=== PATIENT | female | born 1960 ===

== ENCOUNTER 2021-09-26 21:21 | Observation (INO) | payer SELFPAY ==
[2021-09-26] MEDS ORDERED: MORPHINE 4 MG/ML SYR ONE (23:35)
[2021-09-26] MEDS ORDERED: ONDANSETRON 4 MG/2 ML VIAL ONE (23:36)
[2021-09-26 23:47] LABS: Absolute Lymphocytes (CBC) 0.7 K/uL (0.7-4.9); Basophils % 0.7 % (0-1.3); Hematocrit 38.1 % (36.0-45.0); Lymphocytes % 11.4 % (15.3-44.8); MPV 11.1 fL (7.6-11.3); RBC Red Blood Cell Count 4.09 M/uL (3.86-4.86)
[2021-09-26 23:51] LABS: Protime INR 1.3
[2021-09-27 00:02] LABS: ALT/SGPT 67 U/L (12-78); AST/SGOT 88 U/L (15-37); Albumin 2.1 g/dL (3.4-5.0); Alkaline Phosphatase 134 U/L (45-117); BUN Blood Urea Nitrogen 22 mg/dL (7-18); Bicarbonate 22 mmol/L (21-32); Bilirubin Direct 0.8 mg/dL (0-0.2); Bilirubin Total 1.4 mg/dL (0.2-1.0); Glucose Level 101 mg/dL (74-106); NT PRO-BNP 232 pg/mL (<125); Potassium 3.5 mmol/L (3.5-5.1); Protein, Total 8.7 g/dL (6.4-8.2); Sodium Level 138 mmol/L (136-145); Troponin (Emerg Dept Use Only) < 0.02 ng/mL (0.0-0.045)
[2021-09-27] MEDS ORDERED: FUROSEMIDE 40 MG/4 ML VIAL ONE (01:07)
--- NOTE | 2021-09-27 01:55 | P.HP ---
Certification for Inpatient Patient admitted to: Observation With expected LOS: <2 Midnights Patient will require the following post-hospital care: None Practitioner: I am a practitioner with admitting privileges, knowledge of patient current condition, hospital course, and medical plan of care. Services: Services provided to patient in accordance with Admission requirements found in Title 42 Section 412.3 of the Code of Federal Regulations Patient History Date of Service: 09/27/21 Primary Care Provider: [place] Reason for admission: Ascites History of Present Illness: 61-year-old female with history of hepatitis C, hypertension presents emergency department for abdominal swelling. Patient reports to diagnosed with hepatitis C approximately 2 years ago, has noticed increased welling to the abdomen over the course of last 6 months, daughter reports significant worsening over the course of last few days. Patient noted to have severe abdominal swelling, moderately tense ascites with some dyspnea related. Patient was evaluated in the emergency department labs were significant for chloride 108 GFR 60 9T bili 1.4D bili 0.8 AST 88 alk phos 134 BNP [address] abdomen pelvis demonstrated massive ascites patient to at least for underlying hepatic masses the largest of which inferiorly measures 4.3 cm, no biliary dilatation. ED provider wishes to admit for further evaluation and management/paracentesis. - Past Medical/Surgical History -: Hepatitis C -: Hypertension -: Cholecystectomy -: Psychosocial/ Personal History: Patient lives at home with her son - Family History Mother -: Heart disease - Social History Smoking Status: Never smoker Counseled patient to stop smoking for: less than 10 minutes Alcohol use: No CD- Drugs: No Caffeine use: Yes Place of Residence: Home Review of Systems Respiratory: Shortness of Breath Gastrointestinal: Abdominal Pain, Distention Physical Examination - Physical Exam General: Alert, In no apparent distress, Oriented x3 HEENT: Atraumatic Neck: Supple Respiratory: Clear to auscultation bilaterally Cardiovascular: No edema, Normal S1 S2 Capillary refill: <2 Seconds Gastrointestinal: Hypoactive, Distended, Ascites Musculoskeletal: No contractures, No erythema Integumentary: No significant lesion, No tenderness/swelling, No erythema Neurological: Normal speech, Normal strength at 5/5 x4 extr, Normal tone - Studies Laboratory Data (last 24 hrs) 09/26/21 23:26: PT 15.0 H, INR 1.30, APTT 30.0 09/26/21 23:26: WBC 6.20, Hgb 12.4, Hct 38.1, Plt Count 152 09/26/21 23:26: Sodium 138, Potassium 3.5, BUN 22 H, Creatinine 0.84, Glucose 101, Magnesium 2.0, Total Bilirubin 1.4 H, AST 88 H, ALT 67, Alkaline Phosphatase 134 H Assessment and Plan - Plan Assessment: Abdominal pain, significant abdominal ascites secondary to chronic hepatitis C Hypertension Plan: Abdominal pain, significant abdominal ascites secondary to chronic hepatitis C with newly found hepatic masses: Continue medications including prolactin, lactulose, furosemide. Will obtain ammonia level. Will attempt to arrange for ultrasound-guided abdominal paracentesis with fluid analysis including cell count, cytology, culture and sensitivity, LDH, glucose, triglycerides, Gram stain. We will also administer albumin 25% 10 g/L removed. MRI also ordered to further evaluate hepatic masses. Patient counseled on need for follow-up with GI/hepatology on outpatient basis for further care. Hypertension: Obtain and continue home medications. DVT PPX: SCDs Code status: Full code Discharge Plan: Home Plan to discharge in: 24 Hours - Advance Directives Does patient have a Living Will: No Does patient have a Durable POA for Healthcare: No - Code Status/Comfort Care Code Status Assessed: Yes (Full code ) Critical Care: No Time Spent Managing Pts Care (In Minutes): 55
--- NOTE | 2021-09-27 01:58 | ER ---
Nurse's Notes [facility] Name: Nanci Olivo Age: 61 yrs Sex: Female : 1960 Arrival Date: 09/26/2021 Time: 21:25 Bed 13 Private MD: Diagnosis: Unspecified cirrhosis of liver;Abdominal pain, unspecified Presentation: 09/26 21:54 Chief complaint: Patient states: My stomach is swelling really bad, This began about 2 ld1 years ago. Pt reports it has something to do with her liver. Swelling increasing dramatically over the past two days. Coronavirus screen: At this time, the client does not indicate any symptoms associated with coronavirus-19. Ebola Screen: No symptoms or risks identified at this time. Initial Sepsis Screen: Does the patient meet any 2 criteria? No. Patient's initial sepsis screen is negative. Does the patient have a suspected source of infection? No. Patient's initial sepsis screen is negative. Risk Assessment: Do you want to hurt yourself or someone else? Patient reports no desire to harm self or others. Onset of symptoms was September 26, 2021 at 21:57. 21:54 Method Of Arrival: Wheelchair ld1 21:54 Acuity: SYBIL 3 ld1 Triage Assessment: 21:57 General: Appears in no apparent distress. uncomfortable, Behavior is calm, cooperative, ld1 appropriate for age. Pain: Complains of pain in abdomen Pain does not radiate. Pain currently is 10 out of 10 on a pain scale. Quality of pain is described as throbbing, Pain began suddenly, Is continuous. Neuro: Level of Consciousness is awake, alert, obeys commands, Oriented to person, place, time, situation, Appropriate for age. Cardiovascular: Capillary refill < 3 seconds Patient's skin is warm and dry. Respiratory: Airway is patent Respiratory effort is even, unlabored, Respiratory pattern is regular, symmetrical. GI: Abdomen is round distended, Reports lower abdominal pain, upper abdominal pain, bloating. : No signs and/or symptoms were reported regarding the genitourinary system. Derm: No signs and/or symptoms reported regarding the dermatologic system. Derm: No signs and/or symptoms reported regarding the dermatologic system. Historical: - Allergies: :57 No Known Allergies; ld1 - Home Meds: 09/27 00:15 Potassium Chloride Oral [Active]; Hydralazine Oral [Active]; Furosemide Oral [Active]; vg1 Spironolactone Oral [Active]; - PMHx: 09/26 21:57 hepatitis; Hypertensive disorder; ld1 - PSHx: 21:57 section; Cholecystectomy; ld1 - Immunization history:: Adult Immunizations up to date, Client reports receiving the 2nd dose of the Covid vaccine. - Social history:: Smoking status: Patient denies any tobacco usage or history of. Patient/guardian denies using alcohol. Screenin:19 Abuse screen: Denies threats or abuse. Nutritional screening: No deficits noted. vg1 Tuberculosis screening: No symptoms or risk factors identified. Fall Risk No fall in past 12 months (0 pts). No secondary diagnosis (0 pts). IV access (20 points). Ambulatory Aid- None/Bed Rest/Nurse Assist (0 pts). Gait- Normal/Bed Rest/Wheelchair (0 pts) Mental Status- Oriented to own ability (0 pts). Total Hutchinson Fall Scale indicates No Risk (0-24 pts). Assessment: 23:15 General: Appears in no apparent distress. uncomfortable, Behavior is calm, cooperative. vg1 Pain: Complains of pain in abdomen Pain currently is 10 out of 10 on a pain scale. Pain began 2-3 days ago. Neuro: Level of Consciousness is awake, alert, obeys commands, Oriented to person, place, time, situation. Cardiovascular: Patient's skin is warm and dry. Respiratory: Airway is patent Respiratory effort is even, labored, Respiratory pattern is tachypnea. GI: Abdomen is round distended, noted to have ascites, Bowel sounds hypoactive in right upper quadrant, left upper quadrant, right lower quadrant and left lower quadrant Abd is non tender X 4 quads Patient currently denies diarrhea, nausea, vomiting. : No signs and/or symptoms were reported regarding the genitourinary system. EENT: No signs and/or symptoms were reported regarding the EENT system. Derm: Skin is intact. Musculoskeletal: Circulation, motion, and sensation intact. Swelling present in right leg. 23:37 Reassessment: Received VO from Zaira DOMINGUEZ to administer 4 mg of Zofran IVP x1 and Morphine vg1 4 mg IVP x1. 09/27 00:24 Reassessment: Patient and/or family updated on plan of care and expected duration. Pain fu level reassessed. Patient is alert, oriented x 3, equal unlabored respirations, skin warm/dry/pink. 01:00 Reassessment: Patient is alert, oriented x 3, equal unlabored respirations, skin fu warm/dry/pink. patient resting in bed, mild SOB noted. 02:48 Reassessment: Patient and/or family updated on plan of care and expected duration. Pain fu level reassessed. Patient is alert, oriented x 3, equal unlabored respirations, skin warm/dry/pink. Patient voided in bedside commode. 04:12 Reassessment: Patient and/or family updated on plan of care and expected duration. Pain fu level reassessed. Patient is alert, oriented x 3, equal unlabored respirations, skin warm/dry/pink. Vital Signs: 09/26 21:54 BP 145 / 86; Pulse 108; Resp 20; Temp 98.6(TE); Pulse Ox 99% on R/A; Weight 79.38 kg; ld1 Height 5 ft. 4 in. (162.56 cm); Pain 10/10; 23:19 BP 134 / 82; Pulse 107; Resp 24; Pulse Ox 100% ; vg1 09/27 00:00 BP 139 / 78; Pulse 99; Resp 20; Pulse Ox 100% ; fu 01:15 BP 149 / 75; Pulse 102; Resp 22; Pulse Ox 100% on R/A; fu 02:15 BP 153 / 78; Pulse 104; Resp 20; Pulse Ox 98% on R/A; Pain 7/10; fu 03:45 BP 145 / 79; Pulse 106; Resp 20; Temp 98.3; Pulse Ox 99% on R/A; Pain 6/10; fu 09/26 21:54 Body Mass Index 30.04 (79.38 kg, 162.56 cm) ld1 ED Course: 09/26 21:25 Patient arrived in ED. ja2 21:57 Triage completed. ld1 21:57 Arm band placed on left wrist. ld1 23:00 Fransico Meneses PA is PHCP. cp 23:00 Bala Gay MD is Attending Physician. cp 23:01 Francie Saini, ROXIE is Primary Nurse. vg1 23:19 Bed in low position. Call light in reach. Side rails up X2. Adult w/ patient. vg1 23:28 Inserted saline lock: 20 gauge in right antecubital area, using aseptic technique. ds4 Blood collected. 23:34 XRAY Chest (1 view) In Process Unspecified. EDMS 09/27 00:29 Primary Nurse role handed off by Francie Saini, ROXIE fu 00:29 Nabeel Perez, RN is Primary Nurse. fu 00:50 US Extremity Venous W Compression Igor In Process Unspecified. EDMS 01:17 CT Abd/Pelvis - IV Contrast Only In Process Unspecified. EDMS 01:54 Mikey Milner is Hospitalizing Provider. cp 02:26 COVID swab sent to lab. fu 02:26 SARS-COV-2 RT PCR Sent. fu 02:26 COVID-19 (Coronavirus) Document "Date of Onset" if Symptomatic Sent. fu 03:59 No provider procedures requiring assistance completed. Patient admitted, IV remains in fu place. Administered Medications: 09/26 23:40 Drug: Zofran (Ondansetron) 4 mg Route: IVP; Site: right antecubital; 1 09/27 01:05 Follow up: Response: No adverse reaction fu 09/26 23:42 Drug: morphine 4 mg {Note: rass 1.} Route: IVP; Site: right antecubital; 1 09/27 00:30 Follow up: Response: Pain is decreased fu 01:26 Drug: Lasix (furosemide) 40 mg Route: IVP; Site: right antecubital; fu 02:49 Follow up: Urine output 800 ml fu Output: 02:49 Urine: 800ml; Total: 800ml. fu 02:50 Urine: 800ml (Voided); Total: 1600ml. fu Outcome: 01:57 Decision to Hospitalize by Provider. cp 04:11 Admitted to Med/surg accompanied by nurse, room 206, Report called to ROXIE Orosco fu 04:11 Condition: unchanged 04:11 Instructed on the need for admit, Demonstrated understanding of instructions. 04:22 Patient left the ED. fu Signatures: Dispatcher [employer] EDNY Susana Supa ds4 Fransico Meneses PA PA cp Umadhay, Felix, RN RN Francie Saini RN RN 1 Marquita Serna RN RN 1 Stephanie White Corrections: (The following items were deleted from the chart) 00:16 09/26 21:57 Home Meds: None; ld1 vg1
--- NOTE | 2021-09-27 01:58 | EDPHYS ---
Physician Documentation [facility] Name: Nanci Olivo Age: 61 yrs Sex: Female : 1960 Arrival Date: 09/26/2021 Time: 21:25 Bed 13 Private MD: ED Physician Bala Gay HPI: 09/26 23:20 This 61 yrs old Female presents to ER via Wheelchair with complaints of Abdominal cp Swelling, Abdominal Pain. 23:20 The patient presents with abdominal pain that is diffuse, abdominal distention that is cp diffuse. 23:20 Onset: The symptoms/episode began/occurred 2 year(s) ago, and became worse 2 day(s) ago.cp 23:20 The symptoms do not radiate. Associated signs and symptoms: Pertinent positives: cp shortness of breath, swelling of lower legs, Pertinent negatives: chest pain, constipation, diarrhea, fever, vomiting. The symptoms are described as constant. Historical: - Allergies: 21:57 No Known Allergies; ld1 - Home Meds: 09/27 00:15 Potassium Chloride Oral [Active]; Hydralazine Oral [Active]; Furosemide Oral [Active]; vg1 Spironolactone Oral [Active]; - PMHx: 09/26 21:57 hepatitis; Hypertensive disorder; ld1 - PSHx: 21:57 section; Cholecystectomy; ld1 - Immunization history:: Adult Immunizations up to date, Client reports receiving the 2nd dose of the Covid vaccine. - Social history:: Smoking status: Patient denies any tobacco usage or history of. Patient/guardian denies using alcohol. ROS: 23:30 Constitutional: Negative for body aches, chills, fever, poor PO intake. cp 23:30 Eyes: Negative for injury, pain, redness, and discharge. cp 23:30 ENT: Negative for ear pain, sore throat, difficulty swallowing, difficulty handling secretions. 23:30 Cardiovascular: Positive for edema, Negative for chest pain. 23:30 Respiratory: Negative for cough, shortness of breath, wheezing. 23:30 Abdomen/GI: Positive for abdominal pain, abdominal distension, Negative for diarrhea, constipation, black/tarry stool, rectal bleeding. 23:30 Back: Negative for injury or acute deformity. 23:30 Skin: Negative for cellulitis, rash. 23:30 Neuro: Negative for altered mental status, headache, weakness. 23:30 All other systems are negative. Exam: 23:33 Constitutional: The patient appears in no acute distress, alert, awake, cp non-diaphoretic, well developed, well nourished, in obvious pain, uncomfortable. 23:33 Head/Face: Normocephalic, atraumatic. cp 23:33 Eyes: Periorbital structures: appear normal, Conjunctiva: normal, no exudate, no injection, Sclera: no appreciated abnormality, Lids and lashes: appear normal, bilaterally. 23:33 ENT: External ear(s): are unremarkable, Nose: is normal, Mouth: Lips: moist, Oral mucosa: moist, Posterior pharynx: Airway: no evidence of obstruction, patent. 23:33 Neck: ROM/movement: is normal, is supple, without pain, no range of motions limitations, no nuchal rigidity. 23:33 Chest/axilla: Inspection: normal, Palpation: is normal, no crepitus, no tenderness. 23:33 Cardiovascular: Rate: tachycardic, Rhythm: regular, Edema: ankle edema, that is moderate, JVD: is not appreciated. 23:33 Respiratory: the patient does not display signs of respiratory distress, Respirations: labored breathing, is not present, shallow respirations, that is mild, Breath sounds: are clear throughout, no decreased breath sounds, no stridor, no wheezing. 23:33 Abdomen/GI: Inspection: distension, that is severe, in the abdomen diffusely, Bowel sounds: active, all quadrants, Palpation: soft, in all quadrants, severe abdominal tenderness, in all quadrants, rebound tenderness, is not appreciated, voluntary guarding, is elicited in all quadrants, Hernia: noted in the umbilical area, incarceration, is not appreciated. 23:33 Back: CVA tenderness, is absent. 23:33 Skin: cellulitis, is not appreciated, no rash present. 23:33 Neuro: Orientation: to person, place \\T\\ time. Mentation: is normal, Motor: moves all fours, strength is normal, Sensation: is normal. 23:40 ECG was reviewed by the Attending Physician. cp Vital Signs: 21:54 BP 145 / 86; Pulse 108; Resp 20; Temp 98.6(TE); Pulse Ox 99% on R/A; Weight 79.38 kg; ld1 Height 5 ft. 4 in. (162.56 cm); Pain 10/10; 23:19 BP 134 / 82; Pulse 107; Resp 24; Pulse Ox 100% ; vg1 09/27 00:00 BP 139 / 78; Pulse 99; Resp 20; Pulse Ox 100% ; fu 01:15 BP 149 / 75; Pulse 102; Resp 22; Pulse Ox 100% on R/A; fu 02:15 BP 153 / 78; Pulse 104; Resp 20; Pulse Ox 98% on R/A; Pain 7/10; fu 03:45 BP 145 / 79; Pulse 106; Resp 20; Temp 98.3; Pulse Ox 99% on R/A; Pain 6/10; fu 09/26 21:54 Body Mass Index 30.04 (79.38 kg, 162.56 cm) ld1 MDM: 09/26 23:14 Patient medically screened. 09/27 01:50 Data reviewed: vital signs, nurses notes, lab test result(s), EKG, radiologic studies, cp CT scan, plain films, ultrasound. 01:50 Test interpretation: by ED physician or midlevel provider: ECG, plain radiologic cp studies. Counseling: I had a detailed discussion with the patient and/or guardian regarding: the historical points, exam findings, and any diagnostic results supporting the discharge/admit diagnosis, lab results, radiology results, the need for further work-up and treatment in the hospital. Response to treatment: the patient's symptoms have mildly improved after treatment, and as a result, I will admit patient. Physician consultation: Jefferson Turcios was called at 01:50, was contacted at 01:50, regarding admission, to the telemetry unit. patient's condition, and will see patient in ED, shortly. 09/26 23:15 Order name: Basic Metabolic Panel; Complete Time: 00:05 cp 09/27 00:05 Interpretation: Normal except: CL 108; BUN 22; GFR 69. 09/26 23:15 Order name: CBC with Diff; Complete Time: 00:05 cp 09/27 00:05 Interpretation: Normal except: ILAN% 76.2; LYM% 11.4. cp 09/26 23:15 Order name: LFT's; Complete Time: 00:05 09/27 03:17 Interpretation: Normal except: AST 88; ALK 134; BILIT 1.4; BILID 0.8; TP 8.7; ALB 2.1; cp GLOB 6.6; A/G 0.3. 09/26 23:15 Order name: Magnesium; Complete Time: 00:05 cp 09/26 23:15 Order name: NT PRO-BNP; Complete Time: 00:05 09/26 23:15 Order name: PT-INR; Complete Time: 00:05 09/26 23:15 Order name: Troponin (emerg Dept Use Only); Complete Time: 00:05 09/26 23:15 Order name: XRAY Chest (1 view) 09/26 23:15 Order name: Ptt, Activated; Complete Time: 00:05 09/27 00:08 Order name: CT Abd/Pelvis - IV Contrast Only 09/27 00:11 Order name: US Extremity Venous W Compression Igor cp 09/27 01:07 Order name: COVID-19 (Coronavirus) Document "Date of Onset" if Symptomatic 09/27 01:50 Order name: SARS-COV-2 RT PCR; Complete Time: 03:16 EDMS 09/26 23:15 Order name: EKG; Complete Time: 23:16 cp 09/26 23:15 Order name: Cardiac monitoring; Complete Time: 23:44 09/26 23:15 Order name: EKG - Nurse/Tech; Complete Time: 23:44 cp 09/26 23:15 Order name: IV Saline Lock; Complete Time: 23:26 cp 09/26 23:15 Order name: Labs collected and sent; Complete Time: 23:26 09/26 23:15 Order name: O2 Per Protocol; Complete Time: 23:21 09/26 23:15 Order name: O2 Sat Monitoring; Complete Time: 23:21 cp EC/18 23:40 Rate is 106 beats/min. Rhythm is regular. IA interval is normal. QRS interval is cp normal. QT interval is normal. Interpreted by me. Reviewed by me. Administered Medications: 23:40 Drug: Zofran (Ondansetron) 4 mg Route: IVP; Site: right antecubital; vg1 09/27 01:05 Follow up: Response: No adverse reaction 09/26 23:42 Drug: morphine 4 mg {Note: rass 1.} Route: IVP; Site: right antecubital; vg1 09/27 00:30 Follow up: Response: Pain is decreased fu 01:26 Drug: Lasix (furosemide) 40 mg Route: IVP; Site: right antecubital; fu 02:49 Follow up: Urine output 800 ml fu Disposition: 06:18 Co-signature as Attending Physician, Bala Gay MD. [email or web address] Disposition Summary: 09/27/21 01:57 Hospitalization Ordered Hospitalization Status: Observation cp Provider: Mikey Milner cp Location: Telemetry/MedSurg (observation) cp Condition: Stable cp Problem: an ongoing problem cp Symptoms: have improved cp Bed/Room Type: Standard cp Room Assignment: 208(09/27/21 03:41) eb1 Diagnosis - Unspecified cirrhosis of liver cp - Abdominal pain, unspecified cp Forms: - Medication Reconciliation Form cp - SBAR form cp Signatures: Dispatcher [employer] EDMS Fransico Meneses PA PA cp Nabeel Perez RN ROXIE Cait Vila RN RN [facility] Francie Saini RN RN [facility] Bala Gay MD MD [facility] Marquita Serna RN RN 1 Corrections: (The following items were deleted from the chart) 00:16 09/26 21:57 Home Meds: None; ld1 1 09/27 01:50 01:08 CORONAVIRUS ordered. EDLA EDMS 03:41 01:57 cp eb1
[2021-09-27] MEDS ORDERED: LACTULOSE 20 GM/30 ML UCUP PO PRN (04:37)
[2021-09-27] MEDS ORDERED: ONDANSETRON 4 MG/2 ML VIAL IV PRN (04:37)
[2021-09-27 05:31] VITALS: BMI 29.9
[2021-09-27 06:32] LABS: Thyroid Stimulating Hormone 2.29 uIU/mL (0.360-3.740)
--- NOTE | 2021-09-27 07:07 | RAD REPORT ---
EXAM DESCRIPTION: US - Extrem Venous W Compress Igor - 09/27/2021 12:50 am CLINICAL HISTORY: Bilateral leg DVT COMPARISON: None. TECHNIQUE: Real-time sonographic evaluation of the bilateral lower extremity deep venous systems was performed. FINDINGS: Normal compressibility, flow augmentation, phasic flow and spontaneous flow is identified in both the left and right lower extremity deep venous systems. No intraluminal filling defects seen. IMPRESSION: No DVT in either lower extremity.
--- NOTE | 2021-09-27 07:36 | RAD REPORT ---
EXAM DESCRIPTION: RAD - Chest Single View - 09/26/2021 11:34 pm CLINICAL HISTORY: ABDOMINAL DISTENTION COMPARISON: Abdomen Pelvis W Contrast dated 09/27/2021 FINDINGS: Lines: None. Lungs: Low lung volumes but the lungs are otherwise clear. Pleural: No significant pleural effusions or pneumothorax. Cardiac: The heart size is within normal limits. Bones: No acute fractures. Other: IMPRESSION: Low lung volumes but no focal airspace disease.
--- NOTE | 2021-09-27 08:49 | RAD REPORT ---
EXAM DESCRIPTION: MRI - Abdomen WWo Cont - 09/27/2021 8:14 am CLINICAL HISTORY: Eval liver masses COMPARISON: Abdomen Pelvis W Contrast dated 09/27/2021 FINDINGS: Cirrhotic liver morphology. There are several lesions in the liver which are intrinsically T1 hyperintense, hypervascular, and washout consistent which is concerning for the presence of multi focal hepatocellular carcinoma. The largest lesion is in the inferior right hepatic lobe measuring 4. 1 cm. The T2 sequences are limited and is difficult to tell if T2 hyperintense. There is a mildly exo phytic lesion in the superior and lateral aspect of segment 2 of the liver measuring 2.9 cm. There is a lesion in the dome measuring 1.8 cm which washes out and is suspicious. In the posterior aspect of segment 5, there is a 2.7 and 2.4 cm lesion which washes out. The portal vein is patent. Large volume of ascites. No pancreatic masses identified. Spleen is within normal limits. No focal re nal masses are seen. Cholecystectomy. IMPRESSION: At least 5 lesions are present in the liver including the left and right hepatic lobes t hat are suspicious for multifocal/multicentric hepatocellular carcinoma. The largest lesion measures 4.1 cm.
[2021-09-27] MEDS ORDERED: FUROSEMIDE 40 MG TABLET PO SCH ×2 (09:00→11:47)
[2021-09-27] MEDS ORDERED: SPIRONOLACTONE 100 MG TAB PO SCH ×2 (09:00→11:48)
--- NOTE | 2021-09-27 09:02 | RAD REPORT ---
EXAM DESCRIPTION: US - Paracentesis Proc Guidance - 09/27/2021 8:29 am CLINICAL HISTORY: Significant ascites, Hep C Ascites COMPARISON: No comparisons FINDINGS: Informed consent was obtained and time-out was performed. Patient's abdomen was prepped and draped in the usual sterile fashion. 1% lidocaine was used for loca l anesthetic purposes. A small skin incision was made. A paracentesis catheter was guided into the peroneal cavity under son ographic guidance. A small amount of fluid was sent for requested lab studies. A large volume paracentesis was performed . The patient tolerated the procedure well. Patient was administered IV albumin per protocol following the procedure. IMPRESSION: Successful ultrasound-guided paracentesis.
[2021-09-27 11:04] VITALS: O2SAT 96
--- NOTE | 2021-09-27 11:23 | RAD REPORT ---
EXAM DESCRIPTION: CT - Abdomen Pelvis W Contrast - 09/27/2021 6:25 am CLINICAL HISTORY: Abdominal distention;Abd painCOMPARISON: None. TECHNIQUE: CT ABDOMEN PELVIS WITH IV CONTRAST on 09/27/2021 12:08 AM GLUE CLAMP OPERATOR This exam was performed acc ording to our departmental dose-optimization program, which includes automated exposure control, adju stment of the mA and/or kV according to patient size and/or use of iterative reconstruction technique . FINDINGS: There is mostly right basilar atelectasis.Abdomen: Liver is severely cirrhotic containing at least four masses within the right lobe, the largest of which inferiorly measures 4.3 cm. There is no biliary dilatation. Cholecystectomy was performed. There is massive ascites. The pancreas and spl een are normal in appearance. The adrenal glands and kidneys are unremarkable. Abdominal aorta is mod erately calcified without aneurysm. There is no free air. There is no retroperitoneal adenopathy. The re is a large fluid containing umbilical hernia. There is diffuse body wall anasarca.Pelvis: There is no bowel obstruction. Urinary bladder is unremarkable. There is large amount of free pelvic fluid. U terus is normal in size. Appendix is normal.Skeleton: There are no acute osseous findings. No suspici ous bony lesions. IMPRESSION: Severe hepatic cirrhosis with at least four underlying hepatic masses, which should be f urther assessed with dedicated MRI. Severe ascites. Electronically signed by: Xavier Saleem MD 09/27/2021 1:51 AM GLUE CLAMP OPERATOR Due to temporary technical issues with the PACS/Fluency reporting system, reports are being signed by the in house radiologist without review as a courtesy to ensure prompt reporting. The interpreting r adiologist is fully responsible for the content of the report.
[2021-09-27] MEDS ORDERED: VITAMIN D 1000 UNIT TAB PO SCH (11:47)
[2021-09-27] MEDS ORDERED: HOME MED 1 EA UNK (Lactulose [Lactulose] 10 GM/15 ML Solution) PO SCH (11:48)
[2021-09-27 12:05] VITALS: BP 120/58; TEMP 97.9
[2021-09-27] MEDS ORDERED: ALBUMIN HUMAN 25% 200 ML IV ONE (12:46)
--- NOTE | 2021-09-27 13:17 | EKG ---
Test Date: 2021-09-26 Test Time: 23:34:42 Seasonal Driver: JOSESITO MEASUREMENT RESULTS: Intervals: Rate: 106 HI: 132 QRSD: 96 QT: 338 QTc: 448 [place]: P: 38 HI: 132 QRS: 7 T: 123 INTERPRETIVE STATEMENTS: Sinus tachycardia with premature atrial complexes Left ventricular hypertrophy with repolarization abnormality Abnormal ECG No previous ECG available for comparison Electronically Signed On 09-27-21 13:16:06 FIELD APPLICATION ENGINEER by Jose Antonio Underwood
[2021-09-27 13:25] LABS: Body Fluid Source PERITONEAL; Color of fluid Yellow (COLORLESS)
[2021-09-27 13:26] LABS: Appearance SLT. TURBID (CLEAR); Body Fluid WBC 49 /mm^3
--- NOTE | 2021-09-27 15:52 | P.DS ---
Admission Date: 09/27/21 Discharge Date: 09/27/21 Primary Care Provider: Turner Dr. KIKI Quintero Disposition: ROUTINE DISCHARGE Discharge Condition: FAIR Reason for Admission: Ascites - Problems (1) Ascites Status: Acute (2) Liver mass Status: Acute (3) Hepatitis C Status: Acute Brief History of Present Illness: 61-year-old female with history of hepatitis C, hypertension presents emergency department for abdominal swelling. Patient reports to diagnosed with hepatitis C approximately 2 years ago, has noticed increased welling to the abdomen over the course of last 6 months, daughter reports significant worsening over the course of last few days. Patient noted to have severe abdominal swelling, moderately tense ascites with some dyspnea related. Patient was evaluated in the emergency department labs were significant for chloride 108 GFR 60 9T bili 1.4D bili 0.8 AST 88 alk phos 134 BNP [address] abdomen pelvis demonstrated massive ascites patient to at least for underlying hepatic masses the largest of which inferiorly measures 4.3 cm, no biliary dilatation. ED provider wishes to admit for further evaluation and management/paracentesis. Hospital Course: Patient placed on observation on the medical floor. US guided paracentesis was performed and about 10 L of ascitic fluid was drained. Patient was given albumin infusion after the paracentesis. MRI of the abdomen report liver masses and suggest hepatocellular carcinoma. Patient will need biopsy of the liver lesions for diagnosis. She will need to follow with the PCP to coordinate her care which should include referral to CT surgery for liver biopsy, referral to GI for periodic paracentesis and medical management of the ascites. This has been communicated to the patient and offered the option of obtaining her medical care from [facility] [place]. Vital Signs/Physical Exam: Temp Pulse Resp BP Pulse Ox 97.9 F 97 H 18 120/58 L 98 09/27/21 15:03 09/27/21 15:03 09/27/21 15:03 09/27/21 15:03 09/27/21 15:03 General: Alert, In no apparent distress, Oriented x3 HEENT: Mucous membr. moist/pink Neck: Supple, JVD not distended Respiratory: Clear to auscultation bilaterally, Normal air movement Cardiovascular: No edema, Regular rate/rhythm, Normal S1 S2 Capillary refill: <2 Seconds Gastrointestinal: Normal bowel sounds, Soft and benign, No tenderness, Distended Musculoskeletal: No swelling Integumentary: No rashes Neurological: Normal strength at 5/5 x4 extr Laboratory Data at Discharge: WBC 6.20 K/uL (4.3-10.9) 09/26/21 23:26 Hgb 12.4 g/dL (12.0-15.0) 09/26/21 23:26 Hct 38.1 % (36.0-45.0) 09/26/21 23:26 Plt Count 152 K/uL (152-406) 09/26/21 23:26 PT 15.0 SECONDS (9.5-12.5) H 09/26/21 23:26 INR 1.30 09/26/21 23:26 APTT 30.0 SECONDS (24.3-36.9) 09/26/21 23:26 Sodium 138 mmol/L (136-145) 09/26/21 23:26 Potassium 3.5 mmol/L (3.5-5.1) 09/26/21 23:26 BUN 22 mg/dL (7-18) H 09/26/21 23:26 Creatinine 0.84 mg/dL (0.55-1.3) 09/26/21 23:26 Glucose 101 mg/dL (74-106) 09/26/21 23:26 Magnesium 2.0 mg/dL (1.8-2.4) 09/26/21 23:26 Total Bilirubin 1.4 mg/dL (0.2-1.0) H 09/26/21 23:26 AST 88 U/L (15-37) H 09/26/21 23:26 ALT 67 U/L (12-78) 09/26/21 23:26 Alkaline Phosphatase 134 U/L (45-117) H 09/26/21 23:26 Triglycerides 62 mg/dL (<150) 09/27/21 06:01 Cholesterol 116 mg/dL (<200) 09/27/21 06:01 HDL Cholesterol 29 mg/dL (40-60) L 09/27/21 06:01 Cholesterol/HDL Ratio 4.00 09/27/21 06:01 Home Medications: Cholecalciferol (Vitamin D3) [Vitamin D 1000 Iu Tab*] 2,000 unit PO DAILY #30 tab 09/27/21 Furosemide [Lasix] 40 mg PO DAILY #30 09/27/21 Hydralazine [Apresoline*] 25 mg PO BID #60 tab 09/27/21 Lactulose 30 ml PO DAILY #1 bottle 09/27/21 Potassium Chloride 10 meq PO DAILY #30 09/27/21 Spironolactone 100 mg PO DAILY #30 09/27/21 Vitamin E 400 unit PO DAILY #30 09/27/21 New Medications: Hydralazine [Apresoline*] 25 mg PO BID #60 tab Lactulose 30 ml PO DAILY #1 bottle Furosemide [Lasix] 40 mg PO DAILY #30 Potassium Chloride 10 meq PO DAILY #30 Spironolactone 100 mg PO DAILY #30 Cholecalciferol (Vitamin D3) [Vitamin D 1000 Iu Tab*] 2,000 unit PO DAILY #30 tab Vitamin E 400 unit PO DAILY #30 Physician Discharge Instructions: Follow-up in [facility] for further management regarding liver cirrhosis, hepatocellular carcinoma and ascites. You will need a CT-guided liver biopsy to diagnose your liver mass. You will need a drug abuse resistance education officer to manage the fluid in your abdomen (Ascities). You will need periodic tap of abdominal fluid. Diet: AHA Activity: Ad du Followup: NONE,NONE [Primary Care Provider] -
[2021-09-28] MEDS ORDERED: VITAMIN E 400 IU CAP PO SCH (09:00)
[2021-09-28] MEDS ORDERED: LACTULOSE 20 GM/30 ML UCUP PO SCH (09:00)
[2021-09-28] MEDS ORDERED: POTASSIUM CL SA 10 MEQ TAB PO SCH (09:00)
[2021-10-01 17:41] LABS: GLUCOSE, PERITONEAL FLUID 112 mg/dL; LD, PERITONEAL FLUID 36 U/L (<63); TOTAL PROTEIN,PERITONEAL FLUID <3.0 g/dL
== END 2021-09-27 17:13 | disposition home or self-care (01) ==
LOC: ER 21:21 → EDBD 21:21 → ERHOLD 09-27 01:49 → 2ND 09-27 04:16
PROVIDERS: ADMIT Internal Medicine; ATTEND Internal Medicine
PROC: 0W9G3ZX Drainage of Peritoneal Cavity, Percutaneous Approach, Diagnostic (ICD-10-PCS; principal; 2021-09-27)
DX: R18.8 Other ascites (principal); B18.2 Chronic viral hepatitis C; I10 Essential (primary) hypertension; R16.0 Hepatomegaly, not elsewhere classified; Z20.822 Contact with and (suspected) exposure to COVID-19
CPT/HCPCS: 36415; 49083; 71045; 74177; 74183; 80048; 80061; 80076; 82140; 82945; 83615; 83735; 83880; 84157; 84439; 84443; 84478; 84484; 85025; 85610; 85730; 87070; 88162; 89050; 93005; 93970; 96374; 96375; 99285; A9577; G0378; J1940; J2405; P9047; Q9967; U0003